=== PATIENT | female | born 1955 | race Caucasian/White ===

== ENCOUNTER 2017-06-24 14:05 | Emergency (ER) | payer OTHER ==
[~2017-06-24] VITALS: Ht 149.9 cm; Wt 43.1 kg
[~2017-06-24 14:05] MED LIST: ATA10 PO; ESOM40EC PO; MILN50TA PO; TEMA30CA23 PO; TOPI25TA10 PO; TRAM50TA94 PO; TYL3 PO; ZOLP10TA1 PO; [UNRECOGNIZED DRUG - CODE] PO; [UNRECOGNIZED DRUG - CODE] PO
[2017-06-24 14:26] VITALS: BP 100/71
--- NOTE | 2017-06-24 14:57 | NUR ---
Patient ambulated to bed 8. RN evaluating patient at bedside.
--- NOTE | 2017-06-24 14:59 | NUR ---
Dr. Lopez evaluating patient at bedside.
[2017-06-24] MEDS ORDERED: ONDANSETRON 4 MG/2 ML VIAL IM ONE (15:05)
[2017-06-24] MEDS ORDERED: MORPHINE SULFATE 4 MG/ML SYR IM ONE (15:05)
--- NOTE | 2017-06-24 15:08 | NUR ---
61 YO FEMALE C/O LOW BACK AND LEFT CALF PAIN 10/ X3D HAS A HX OF CHRONIC PAIN. PT ALSO C/O CONGESTION, RUNNY NOSE X4D. A&OX4, GURNEY TO LOWEST LEVEL, BED RAIL UP RESSTING ON GURNEY.
[2017-06-24 15:56] VITALS: BP 124/74
--- NOTE | 2017-06-24 16:00 | NUR ---
Patient discharged with v/s stable. Written and verbal after care instructions given and explained. Patient verbalized understanding. Ambulatory with steady gait. All questions addressed prior to discharge. Advised to follow up with PMD.
== END 2017-06-24 16:00 | disposition home or self-care (01) ==
LOC: MED 14:05
DX: M54.5 Low back pain (principal); J44.9 Chronic obstructive pulmonary disease, unspecified; Z91.041 Radiographic dye allergy status; Z88.8 Allergy status to other drugs, medicaments and biological substances; M79.7 Fibromyalgia
CPT/HCPCS: 96372; 99284; J2270; J2405